=== PATIENT | female | born 1975 | race Caucasian/White ===

== ENCOUNTER 2018-08-15 17:05 | Inpatient (IN) | payer MEDICAID, OTHER ==
[~2018-08-15] VITALS: Ht 172.7 cm; Wt 106.0 kg
[2018-08-15] MEDS ORDERED: BUPR150T73 PO (17:26)
[2018-08-15] MEDS ORDERED: OMEP-110 PO (17:26)
[2018-08-15] MEDS ORDERED: VERA120T5 PO (17:26)
[2018-08-15] MEDS ORDERED: CELE200C PO (17:26)
[2018-08-15] MEDS ORDERED: ATOR10TA9 PO (17:26)
--- NOTE | 2018-08-15 17:26 | NUR ---
PT RESTING IN POSITION OF COMFORT IN [facility], CLOTHING REMOVED AND PT IN HOSPITAL GOWN. S.O. AT BEDSIDE. CALL LIGHT W/IN REACH. PT INSTRUCTED ON USE, VERBALIZED UNDERSTANDING. 10/31 BILAT FLANK PAIN, AWAITING EVAL BY EDMD. FALL PRECAUTIONS IN PLACE. AWAITING ORDERS.
[2018-08-15] MEDS ORDERED: HYDROmorphone 2 MG/ML, 1ML IVPush PRN ×2 (18:00→19:30)
[2018-08-15] MEDS ORDERED: ONDANSETRON 2MG/ML, 2ML IVPush ONE (18:00)
[2018-08-15] MEDS ORDERED: HYDROmorphone 1 MG/ML, 1ML VIAL ONE (18:18)
[2018-08-15] MEDS ORDERED: ONDANSETRON 2MG/ML, 2ML ONE (18:18)
--- NOTE | 2018-08-15 18:30 | NUR ---
PHONE REPORT GIVEN TO YUNIOR OLIVERA - OR. PT REPORTING 7/10 PAIN, MEDICATED ORDERED ON EMAR. PT ANXIOUS ABOUT PROCEDURE, BP ELEVATED AFTER TELLING PT REPORT WAS GIVEN TO OR. ED MD AWARE OF VS.
[2018-08-15 18:39] LABS: BASOPHILS # (AUTO) 0.04 x10^3/uL (0-0.1); BASOPHILS % (AUTO) 0 % (0-1); EOSINOPHILS # (AUTO) 0.09 x10^3/uL (0-0.4); EOSINOPHILS % (AUTO) 1 % (1-7); LYMPHOCYTES # (AUTO) 1.58 x10^3/uL (1-3.4); LYMPHOCYTES % (AUTO) 14 % (22-44); MD NO; MEAN CORPUSCULAR HEMOGLOBIN 31.4 pg (27.0-34.8); MEAN CORPUSCULAR HGB CONC 34.5 g/dL (32.4-35.8); MEAN PLATELET VOLUME 9.6 fL (7.4-10.4); MONOCYTES # (AUTO) 0.57 x10^3/uL (0.2-0.8); MONOCYTES % (AUTO) 5 % (2-9); NEUTROPHILS # (AUTO) 8.68 x10^3/uL (1.8-6.8); NEUTROPHILS % (AUTO) 79 % (42-75); PLATELET COUNT 202 x10^3/uL (130-400); RED BLOOD COUNT 4.08 x10^6/uL (3.82-5.3); RED CELL DISTRIBUTION WIDTH 12.4 % (9.6-15.2)
--- NOTE | 2018-08-15 18:44 | NUR ---
REPORT TO YUNIOR PIMENTEL IN ED. REPORT HAS BEEN CALLED TO OR, [facility] [place], AWAITING TRANSPORT BY OR STAFF.
[2018-08-15] MEDS ORDERED: MIDAZOLAM 1 MG/ML, 2ML ONE (19:12)
[2018-08-15] MEDS ORDERED: FENTANYL PF 100 MCG/2ML ONE ×3 (19:12→20:45)
[2018-08-15] MEDS ORDERED: DEXAMETHASONE 4 MG/ML, 1ML ONE (19:27)
[2018-08-15] MEDS ORDERED: MEPERIDINE/PF 25MG/0.5ML IVPush PRN (19:30)
[2018-08-15] MEDS ORDERED: ONDANSETRON 2MG/ML, 2ML IV PRN (19:30)
[2018-08-15] MEDS ORDERED: LABETALOL 5MG/ML, 20ML IV PRN (19:30)
[2018-08-15] MEDS ORDERED: ACETAMINOPHEN 325 MG TABLET PO PRN (19:30)
[2018-08-15] MEDS ORDERED: hydrALAzine 20 MG/ML, 1ML IV PRN (19:30)
[2018-08-15] MEDS ORDERED: PROMETHAZINE 25 MG/ML, 1ML IV PRN (19:30)
[2018-08-15] MEDS ORDERED: OXYcodone 5 MG/5 ML ORAL.SOL UDC PO PRN (19:30)
[2018-08-15] MEDS ORDERED: KETOROLAC 30 MG/1 ML ONE (19:45)
[2018-08-15] MEDS ORDERED: ROCURONIUM 10MG/ML,5ML ONE (19:45)
[2018-08-15] MEDS ORDERED: PROPOFOL 10 MG/ML, 20ML ONE (19:45)
[2018-08-15] MEDS ORDERED: OXYcodone 5 MG/5 ML ORAL.SOL UDC ONE (20:10)
[2018-08-15] MEDS ORDERED: MEPERIDINE/PF 25MG/ML,1ML ONE (20:10)
[2018-08-15] MEDS: FENTANYL PF 100 MCG/2ML IV PRN ×4 (20:18→20:56)
[2018-08-15] MEDS ORDERED: PROMETHAZINE 25 MG/ML, 1ML ONE (20:21)
[2018-08-15] MEDS ORDERED: OPIUM/BELLADONNA SUPP.RECT 16.2-60 MG ONE (20:34)
[2018-08-15] MEDS: OPIUM/BELLADONNA SUPP.RECT 16.2-60 MG PR PRN (20:48)
[2018-08-15] MEDS: SODIUM CHLORIDE 0.9% 1,000 ML IV SCH (22:16)
[2018-08-15] MEDS: morphine SULFATE 10 MG/ML, 1ML IVPush PRN (22:49)
[2018-08-15 23:50] VITALS: BP 147/97
[2018-08-16 01:42] LABS: MICROSCOPIC INDICATED
[2018-08-16 01:43] LABS: CULTURE INDICATED? YES
[2018-08-16] MEDS: morphine SULFATE 10 MG/ML, 1ML IVPush PRN ×7 (01:50→22:13)
[2018-08-16] MEDS: PHENAZOPYRIDINE 100 MG TABLET PO PRN ×3 (02:04→16:35)
[2018-08-16 04:20] VITALS: BP 121/76
[2018-08-16 04:30] LABS: BASOPHILS # (AUTO) 0.03 x10^3/uL (0-0.1); BASOPHILS % (AUTO) 0 % (0-1); EOSINOPHILS % (AUTO) 0 % (1-7); LYMPHOCYTES # (AUTO) 0.82 x10^3/uL (1-3.4); LYMPHOCYTES % (AUTO) 7 % (22-44); MD NO; MEAN CORPUSCULAR HEMOGLOBIN 31.8 pg (27.0-34.8); MEAN CORPUSCULAR HGB CONC 34.4 g/dL (32.4-35.8); MEAN CORPUSCULAR VOLUME 92.5 fL (80-100); MEAN PLATELET VOLUME 9.6 fL (7.4-10.4); MONOCYTES # (AUTO) 0.17 x10^3/uL (0.2-0.8); MONOCYTES % (AUTO) 2 % (2-9); NEUTROPHILS # (AUTO) 11.06 x10^3/uL (1.8-6.8); NEUTROPHILS % (AUTO) 92 % (42-75); PLATELET COUNT 203 x10^3/uL (130-400); RED BLOOD COUNT 3.72 x10^6/uL (3.82-5.3); RED CELL DISTRIBUTION WIDTH 12.3 % (9.6-15.2)
[2018-08-16 04:42] LABS: ANION GAP 5 mmol/L (5-15); CHLORIDE 109 mmol/L (98-107)
[2018-08-16] MEDS: SODIUM CHLORIDE 0.9% 1,000 ML IV SCH ×2 (05:50→14:30)
[2018-08-16] MEDS: OPIUM/BELLADONNA SUPP.RECT 16.2-60 MG PR PRN ×2 (05:55→18:49)
[2018-08-16 06:31] VITALS: BP 135/88
[2018-08-16] MEDS: CEFTRIAXONE PMX 1GM/50ML 50 ML IV SCH (09:11)
[2018-08-16] MEDS ORDERED: OXYcodone/APAP 10/325MG TABLET PO PRN (10:30)
[2018-08-16] MEDS ORDERED: MORPHINE SULFATE 4 MG/ML, 1ML ONE (14:03)
[2018-08-16] MEDS: OXYBUTYNIN CHLORIDE 5 MG TABLET PO SCH ×2 (14:09→22:12)
[2018-08-16 14:15] VITALS: BP 132/83
[2018-08-16] MEDS: OXYcodone/APAP 10/325MG TABLET PO PRN ×2 (15:42→18:49)
[2018-08-16 18:46] VITALS: BP 160/92
[2018-08-16] MEDS: TAMSULOSIN 0.4 MG CAP.ER.24H PO SCH (22:13)
[2018-08-17 01:34] VITALS: BP 125/84
[2018-08-17] MEDS: morphine SULFATE 10 MG/ML, 1ML IVPush PRN ×3 (01:40→09:37)
[2018-08-17] MEDS: OXYcodone/APAP 10/325MG TABLET PO PRN ×5 (01:40→21:08)
[2018-08-17] MEDS: PHENAZOPYRIDINE 100 MG TABLET PO PRN ×3 (01:46→21:08)
[2018-08-17] MEDS: SODIUM CHLORIDE 0.9% 1,000 ML IV SCH ×3 (03:31→21:11)
[2018-08-17 06:54] VITALS: BP 117/74
[2018-08-17] MEDS: OXYBUTYNIN CHLORIDE 5 MG TABLET PO SCH ×2 (09:36→16:09)
[2018-08-17] MEDS: CEFTRIAXONE PMX 1GM/50ML 50 ML IV SCH (09:36)
[2018-08-17 10:22] LABS: BASOPHILS # (AUTO) 0.04 x10^3/uL (0-0.1); BASOPHILS % (AUTO) 0 % (0-1); EOSINOPHILS # (AUTO) 0.16 x10^3/uL (0-0.4); EOSINOPHILS % (AUTO) 2 % (1-7); LYMPHOCYTES # (AUTO) 1.73 x10^3/uL (1-3.4); LYMPHOCYTES % (AUTO) 19 % (22-44); MD NO; MEAN CORPUSCULAR HGB CONC 33.7 g/dL (32.4-35.8); MEAN PLATELET VOLUME 9.8 fL (7.4-10.4); MONOCYTES # (AUTO) 0.62 x10^3/uL (0.2-0.8); MONOCYTES % (AUTO) 7 % (2-9); NEUTROPHILS # (AUTO) 6.36 x10^3/uL (1.8-6.8); NEUTROPHILS % (AUTO) 71 % (42-75); PLATELET COUNT 172 x10^3/uL (130-400); RED BLOOD COUNT 3.49 x10^6/uL (3.82-5.3); RED CELL DISTRIBUTION WIDTH 12.9 % (9.6-15.2)
[2018-08-17 10:23] LABS: ANION GAP 8 mmol/L (5-15); CALCIUM 8.3 mg/dL (8.5-10.1); CHLORIDE 106 mmol/L (98-107); CREATININE 0.66 mg/dL (0.55-1.02)
[2018-08-17 14:17] VITALS: BP 121/74
[2018-08-17 19:34] VITALS: BP 138/86
[2018-08-17] MEDS: DIAZEPAM 5 MG TABLET PO PRN (21:08)
[2018-08-17] MEDS: TAMSULOSIN 0.4 MG CAP.ER.24H PO SCH (21:08)
[2018-08-17] MEDS: ONDANSETRON 2MG/ML, 2ML IVPush PRN (21:08)
[2018-08-18] MEDS: OXYBUTYNIN CHLORIDE 5 MG TABLET PO SCH ×2 (01:38→08:05)
[2018-08-18] MEDS: OXYcodone/APAP 10/325MG TABLET PO PRN ×3 (01:38→11:26)
[2018-08-18 01:55] VITALS: BP 136/78
[2018-08-18] MEDS: DIAZEPAM 5 MG TABLET PO PRN ×2 (04:58→13:09)
[2018-08-18] MEDS: PHENAZOPYRIDINE 100 MG TABLET PO PRN ×2 (04:58→13:09)
[2018-08-18] MEDS: ONDANSETRON 2MG/ML, 2ML IVPush PRN (05:58)
[2018-08-18] MEDS: morphine SULFATE 10 MG/ML, 1ML IVPush PRN (05:58)
[2018-08-18] MEDS: SODIUM CHLORIDE 0.9% 1,000 ML IV SCH ×2 (07:17→13:00)
[2018-08-18 08:00] VITALS: BP 119/73
[2018-08-18] MEDS: CEFTRIAXONE PMX 1GM/50ML 50 ML IV SCH (08:05)
[2018-08-18] MEDS ORDERED: PHEN-582 PO (13:13)
[2018-08-18] MEDS ORDERED: TAMS-11 PO (13:13)
[2018-08-18] MEDS ORDERED: OXYB5TAB7 PO (13:13)
[2018-08-18 13:14] VITALS: BP 131/80
[2018-08-18] MEDS ORDERED: CEFP200T PO (13:24)
[2018-08-18] MEDS ORDERED: DIAZ5TAB PO (13:36)
[2018-08-18] MEDS ORDERED: OXYC-307 PO (13:36)
== END 2018-08-18 13:43 | disposition home or self-care (01) | DRG 854 ==
LOC: OR 18:22 → EDIP 18:25 → 4NOR 21:46 → DCLOUNGE 08-18 13:37
PROVIDERS: ADMIT Internal Medicine; ATTEND Internal Medicine
PROC: 0TC78ZZ Extirpation of Matter from Left Ureter, Via Natural or Artificial Opening Endoscopic (ICD-10-PCS; 2018-08-15)
PROC: 0TC68ZZ Extirpation of Matter from Right Ureter, Via Natural or Artificial Opening Endoscopic (ICD-10-PCS; 2018-08-15)
PROC: 0T768DZ Dilation of Right Ureter with Intraluminal Device, Via Natural or Artificial Opening Endoscopic (ICD-10-PCS; principal; 2018-08-15 19:30)
PROC: 0T9B70Z Drainage of Bladder with Drainage Device, Via Natural or Artificial Opening (ICD-10-PCS; 2018-08-16)
DX: A41.9 Sepsis, unspecified organism (principal); N13.6 Pyonephrosis; E78.00 Pure hypercholesterolemia, unspecified; E78.5 Hyperlipidemia, unspecified; F17.290 Nicotine dependence, other tobacco product, uncomplicated; I10 Essential (primary) hypertension; K21.9 Gastro-esophageal reflux disease without esophagitis; Z79.899 Other long term (current) drug therapy; Z91.030 Bee allergy status; Z88.8 Allergy status to other drugs, medicaments and biological substances; Z91.018 Allergy to other foods
CPT/HCPCS: 36415; 74018; 76000; 80048; 81001; 84703; 85025; 87040; 87086; 96374; 96375; 99285; G0378; J0696; J1100; J1170; J1885; J2175; J2250; J2405; J2550; J2704; J3010; J2270; J7030

== ENCOUNTER 2018-09-16 03:32 | Emergency (ER) | payer OTHER ==
[~2018-09-16] VITALS: Ht 162.6 cm; Wt 98.4 kg
[~2018-09-16 03:32] MED LIST: ATOR10TA9 PO; BUPR150T73 PO; CEFP200T PO; CELE200C PO; DIAZ5TAB PO; OMEP-110 PO; OXYB5TAB7 PO; OXYC-307 PO; PHEN-582 PO; TAMS-11 PO; VERA120T5 PO
[2018-09-16] MEDS ORDERED: CIPR500T87 PO (03:39)
[2018-09-16] MEDS ORDERED: DIPHENHYDRAMINE 25 MG CAPSULE PO ONE (04:00)
[2018-09-16] MEDS ORDERED: FAMOTIDINE 20 MG TABLET PO ONE (04:00)
[2018-09-16] MEDS ORDERED: DIPHENHYDRAMINE 25 MG CAPSULE ONE (04:02)
[2018-09-16] MEDS ORDERED: FAMOTIDINE 20 MG TABLET ONE (04:02)
--- NOTE | 2018-09-16 04:10 | NUR ---
Pt c/o "hands feeling funny and face and lips going numb." Also c/o "mouth swelling". States started new antibiotic today and worries she is reacting to it. Pt medicated per JUN. Pt swallowed pills, then gagging because "it taste really bad." Pt currently able to keep pills down and declines nausea meds. Pulse ox in place. Call light in reach. Will continue to monitor.
--- NOTE | 2018-09-16 04:51 | NUR ---
received report from YUNIOR Candelaria.
--- NOTE | 2018-09-16 04:58 | NUR ---
re-evaluation done. patient states that she's feeling much better. discharged with prescriptions and instruction. verbalized understanding.
[2018-09-16 05:00] VITALS: BP 129/67
== END 2018-09-16 05:03 | disposition home or self-care (01) ==
LOC: ED 03:51
DX: T36.8X5A Adverse effect of other systemic antibiotics, initial encounter (principal); Y92.9 Unspecified place or not applicable
CPT/HCPCS: 99284; J7512; Q0163